=== PATIENT | male | born 1960 | race African-American/Black ===

== ENCOUNTER 2017-07-24 10:46 | Emergency (ER) | payer MEDICAID ==
[~2017-07-24] VITALS: Ht 177.8 cm; Wt 76.0 kg
[2017-07-24] MEDS ORDERED: MORPHINE SULFATE 4 MG/ML CPJ (NOT FOR IM USE) IV STA (11:21)
[2017-07-24 13:43] VITALS: BP 132/80
== END 2017-07-24 16:25 | disposition short-term general hospital (02) ==
LOC: ER 10:57
DX: S02.602A Fracture of unspecified part of body of left mandible, initial encounter for closed fracture (principal); I10 Essential (primary) hypertension; F17.200 Nicotine dependence, unspecified, uncomplicated; G43.909 Migraine, unspecified, not intractable, without status migrainosus; Y08.89XA Assault by other specified means, initial encounter; Y93.89 Activity, other specified; Y92.89 Other specified places as the place of occurrence of the external cause; Y99.8 Other external cause status
CPT/HCPCS: 70486; 96374; 99285; J2270